=== PATIENT | female | born 1945 | race Two or more races ===

== ENCOUNTER 2018-01-20 05:43 | Day surgery (SDC) | payer MEDICARE, MEDICAID ==
--- NOTE | 2018-01-19 14:11 | Pre-Procedure Note/Attestation ---
Pre-Procedure Note/Attestation Complete Prior to Procedure Planned Procedure: right Procedure Narrative: phaco with IOL Indications for Procedure Pre-Operative Diagnosis: cataract Attestation I attest that I discussed the nature of the procedure; its benefits; risks and complications; and alternatives (and the risks and benefits of such alternatives ), prior to the procedure, with the patient (or the patient's legal used equipment sales representative). I attest that, if there was a reasonable possibility of needing a blood transfusion, the patient (or the patient's legal used equipment sales representative) was given the [facility] standardized written summary, pursuant to the [place] Blood Safety Act ([place] Health and Safety Code # 1645, as amended). I attest that I re-evaluated the patient just prior to the surgery and that there has been no change in the patient's H&P, except as documented below: OLYA GARCIA Jan 19, 2018 14:11
--- NOTE | 2018-01-19 14:13 | Opthalmology H&P ---
Ophthalmology H&P H&P Chief Complaint: decreased vision in right eye HPI Vision Affects Ability to: read, focus/use eyes together, manage personal affairs HPI Narrative blurry vision Exam Visual Acuity: OD: HM OS; 20/160 Tension: OD: 16 OS: 18 Eye Exam: normal OU: external exam, palpebral fissure-width, marginal reflex distance, levator function, corneas, anterior chambers; findings: lens - OD: psc OS: NS, fundus exam - PDR OU Assessment/Plan Diagnosis: (1) Posterior subcapsular cataract, right Treatment Plan: cataract extraction w/ lens implant Goals of Treatment: improvement of vision, enhance quality of life Attestation Attestation The risks and benefits of the surgery as well as alternative procedures were explained to the patient in detail. OLYA GARCIA Jan 19, 2018 14:13
[2018-01-20] VITALS (11 sets, daily range): BP systolic 150–184; BP diastolic 55–76
[~2018-01-20] VITALS: Ht 147.3 cm; Wt 58.1 kg
[2018-01-20] MEDS: Cyclopentolate 1% Opth Sol 2ml RIGHT EYE SCH ×3 (06:41→07:15)
[2018-01-20] MEDS: Tropicamide 1% Opth 15ml Soln RIGHT EYE SCH ×3 (06:42→07:15)
[2018-01-20] MEDS: Phenylephrine 10% Opth Soln 5ml RIGHT EYE SCH ×3 (06:42→07:15)
[2018-01-20] MEDS: Tobramycin Op Soln 0.3% 5ml RIGHT EYE SCH ×3 (06:42→07:15)
[2018-01-20] MEDS ORDERED: LOSARTAN POTASS50 MG ORAL (06:52)
[2018-01-20] MEDS ORDERED: ISOSORBIDE MONO60 M1 PO (06:52)
[2018-01-20] MEDS ORDERED: APRESOLINE50 MG ORAL (06:52)
[2018-01-20] MEDS ORDERED: NOVOLIN N100 UNIT/1 SUBQ ×2 (06:52)
[2018-01-20] MEDS ORDERED: RENVELA800 MG ORAL (06:52)
[2018-01-20] MEDS ORDERED: Tetracaine 0.5% Opth 4ml Soln RIGHT EYE ONE (07:00)
[2018-01-20] MEDS ORDERED: Dexamethasone 4mg/ml vial ONE (07:00)
[2018-01-20] MEDS ORDERED: Akten 3.5% 1ml Btl RIGHT EYE ONE (07:00)
[2018-01-20] MEDS ORDERED: Proparacaine 0.5% Opth Soln 15ml RIGHT EYE ONE (07:00)
[2018-01-20] MEDS ORDERED: Maxitrol Opth Oint 3.5gm ONE (07:00)
[2018-01-20] MEDS ORDERED: Pred Forte 1% Opth Susp 1ml ONE (07:00)
[2018-01-20] MEDS ORDERED: Diclofenac Sod 0.1% Op Soln RIGHT EYE SCH (07:00)
[2018-01-20] MEDS ORDERED: Pilocarpine 2% Opth 15ml Soln ONE (07:00)
[2018-01-20] MEDS ORDERED: Povidone-Iodine 5% opth solution ONE (07:00)
[2018-01-20] MEDS ORDERED: fentaNYL 100 mcg/2 mL IV ONE (08:30)
[2018-01-20] MEDS ORDERED: Midazolam 2mg/2ml Inj IVP PRN (08:45)
[2018-01-20] MEDS ORDERED: Labetalol 5mg/ml 20ml vial IV PRN (08:45)
[2018-01-20] MEDS ORDERED: Atropine Inj 1mg/10ml Syr IV PRN (08:45)
[2018-01-20] MEDS ORDERED: DiphenhydrAMINE 50mg/ml Inj IVP PRN (08:45)
[2018-01-20] MEDS ORDERED: fentaNYL 100 mcg/2 mL IV PRN (08:45)
--- NOTE | 2018-01-20 08:51 | Anethesia Preoperative Eval ---
Anesthesia Pre-op PMH/ROS General Date of Evaluation: Jan 20, 2018 Time of Evaluation: 08:23 Anesthesiologist: javy ASA Score: ASA 4 Mallampati Score Class I : Soft palate, uvula, fauces, pillars visible Class II: Soft palate, uvula, fauces visible Class III: Soft palate, base of uvula visible Class IV: Only hard plate visible Mallampati Classification: Class II Surgeon: alexus Diagnosis: cataract right eye Surgical Procedure: cataract extraction w/ iol righy eye Anesthesia History: none Family History: no anesthesia problems Allergies: Coded Allergies: No Known Allergies (Unverified , 01/19/18) Medications: see eMAR Past Medical History Cardiovascular: Reports: HTN Gastrointestinal/Genitourinary: Reports: ESRD Endocrine: Reports: DM Anesthesia Pre-op Phys. Exam Physician Exam Last Vital Signs Date Time Temp Pulse Resp B/P (MAP) Pulse Ox O2 Delivery O2 Flow Rate FiO2 01/20/18 07:18 97.9 74 20 180/74 (109) 97.9 01/20/18 06:37 Room Air Constitutional: NAD Neurologic: CN 2-12 intact Cardiovascular: RRR Respiratory: CTA Gastrointestinal: S/NT/ND Airway Exam Mallampati Score: Class II MO: limited Neck: short TMD: 2fb ROM: limited Anesthesia Pre-op A/P Labs Chemistry Test 01/20/18 07:10 Potassium Level 4.4 MMOL/L (3.5-5.1) Risk Assessment & Plan Assessment: asa4 Plan: mac Status Change Before Surgery: No Pre-Antibiotics Drug: Darby Briggs MD Jan 20, 2018 08:51
--- NOTE | 2018-01-20 11:15 | Brief Operative Note ---
Immediate Post Operative Note Operative Note Chief Complaint: blurry vision Pre-op Diagnosis: cataract, OD Procedure: phaco with IOL, OD Post-op Diagnosis: pseudophakia Post-op Diagnosis: same as pre-op Findings: consistent w/pre-op dx studies Surgeon: Marisol Anesthesiologist: Arun Lee Anesthesia: MAC Specimen: none Complications: none Condition: stable Fluids: LR Estimated Blood Loss: none Drains: none Implant(s) used?: Yes OLYA GARCIA Jan 20, 2018 11:15
--- NOTE | 2018-01-20 11:16 | Operative Note - PDOC ---
Operative Note Operative Note Date of Operation/Procedure: Jan 20, 2018 Chief Complaint: blurry vision Pre-op Diagnosis: cataract, OD Procedure: phaco with IOL, OD Post-op Diagnosis: pseudophakia Post-op Diagnosis: same as pre-op Operative Findings: consistent w/pre-op dx studies Surgeon: Marisol Anesthesiologist: Arun Lee Anesthesia: MAC Specimen: none Complications: none Condition: stable Fluids: LR Estimated Blood Loss: none Drains: none Implant(s) used?: Yes Indications for Procedure cataract Description of Procedure This patient has been complaining visually significant cataract in the affected eye with the best corrected visual acuity under moderate glare conditions worse. The patient complains of difficulties with glare in performing activities of daily living and wants to manage personal affairs with comfort and accuracy and see well enough to move with safety at home and outdoors. The risks, benefits and alternatives of the procedure were discussed with the patient in the office prior to scheduling surgery. All questions from the patient were answered after the surgical procedure was explained in detail. The risks of the procedure as explained to the patient include, but are not limited to, pain, infection, bleeding, loss of vision, retinal detachment, need for further surgery, loss of lens nucleus, double vision, etc. Alternative procedures were discussed which include, to do nothing or seek a second opinion. Informed consent for this procedure was obtained from the patient. The patient was referred to a primary care physician for a cardiopulmonary clearance prior to surgery, after proper evaluation was done patient was properly scheduled for outpatient surgery. The patient was brought to the operating room where the anesthesiologist established I.V. lines and cardiac monitoring leads. Mild intravenous sedation was administered. The patient was then prepared with a 5% solution of povidone -iodine to the conjunctival fornix and lashes, and a 5% solution of povidone- iodine to the lids and periorbital skin. The patient was then draped in the usual sterile fashion. A lid speculum was then placed in the operative eye. A keratome blade was then used to create a biplanar incision into the anterior chamber. Viscoelastics was then instilled into the anterior chamber. A capsulorrhexis was then fashioned with an utrata forceps and a BSS and a G 27 cannula was used to hydrodissect and hydro delineate the lens nucleus. Paracentesis incision was made at 3 o'clock with sharp blade. The phacoemulsification unit, after being properly adjusted and tested, was then used to emulsify the nucleus followed by aspiration and irrigation of residual cortical material with the I and A unit. Healon was then instilled into the anterior chamber. The corneal wound was then enlarged to the size of the optic with the monique keratome blade. The intraocular lens was then inspected for right power and size and thought to be satisfactory. Then the lens was gently placed in the capsular bag. Positioning within the capsular bag was confirmed by direct visualization. Optic centration was accomplished with a Sinskey hook. Viscoelastics was removed from the anterior chamber using the irrigation and aspiration unit. The corneal wound was then tested for leaks and none were found. The lid speculum were then removed. Sponge and needle counts were correct. An eye patch and shield were placed over the operative eye. The patient was taken to the recovery room in stable condition. There were no complications. The patient tolerated the procedure well. The patient was then transferred to the ambulatory surgery unit in stable and satisfactory condition , was given detailed written instructions and asked to follow up in the office the next day. OLYA GARCIA Jan 20, 2018 11:16
[2018-01-20] MEDS ORDERED: BSS 15ml BTL ONE (15:15)
[2018-01-20] MEDS ORDERED: Sodium Hyaluronate 14 mg/ml 0.85ml ONE (15:15)
[2018-01-20] MEDS ORDERED: EPINEPHrine 1mg/1ml Amp ONE (15:15)
[2018-01-20] MEDS ORDERED: BSS 500ml btl ONE (15:15)
--- NOTE | 2018-01-20 15:29 | Immediate Post-Op Evaluation ---
Immediate Post-Op Evalulation Immediate Post-Op Evalulation Procedure: cataract extraction w/ iol implant right eye Date of Evaluation: Jan 20, 2018 Time of Evaluation: 09:09 IV Fluids: 200ml 0.9ns Blood Products: none Estimated Blood Loss: negligible Blood Pressure Systolic: 168 Blood Pressure Diastolic: 69 Pulse Rate: 72 Respiratory Rate: 18 O2 Sat by Pulse Oximetry: 100 Temperature (Fahrenheit): 97.3 Pain Score (1-10): 0 Nausea: No Vomiting: No Complications none Patient Status: awake, reacts, patent Hydration Status: adequate Drug: Darby Briggs MD Jan 20, 2018 15:29
--- NOTE | 2018-01-20 15:30 | 48 Hour Post Anesthesia Eval ---
Post Anesthesia Evaluation Procedure: cataract extraction w/ iol implant right eye Date of Evaluation: Jan 20, 2018 Time of Evaluation: 09:11 Blood Pressure Systolic: 177 0: 58 Pulse Rate: 72 Respiratory Rate: 18 Temperature (Fahrenheit): 97.3 O2 Sat by Pulse Oximetry: 100 Airway: patent Nausea: No Vomiting: No Pain Intensity: 0 Hydration Status: adequate Cardiopulmonary Status: stable Mental Status/LOC: patient returned to baseline Post-Anesthesia Complications: none Follow-up care needed: N/A Darby Holloway MD Jan 20, 2018 15:30
== END 2018-01-20 11:45 | disposition home or self-care (01) ==
LOC: SUR 05:43
DX: H25.041 Posterior subcapsular polar age-related cataract, right eye (principal); E11.22 Type 2 diabetes mellitus with diabetic chronic kidney disease; I12.0 Hypertensive chronic kidney disease with stage 5 chronic kidney disease or end stage renal disease; N18.6 End stage renal disease; Z99.2 Dependence on renal dialysis
CPT/HCPCS: 36415; 66984; 82962; 84132; J0171; J1100; J3010; J3370; V2632; 94003; 94150

== ENCOUNTER 2018-03-21 05:12 | Day surgery (SDC) | payer MEDICARE, MEDICAID ==
--- NOTE | 2018-03-20 12:57 | Opthalmology H&P ---
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 Octavio Damon MD Mar 20, 2018 12:57
--- NOTE | 2018-03-20 12:59 | Pre-Procedure Note/Attestation ---
Pre-Procedure Note/Attestation Complete Prior to Procedure Planned Procedure: left Procedure Narrative: Cataract Extraction with IOL implant to the Left eye Attestation I attest that I discussed the nature of the procedure; its benefits; risks and complications; and alternatives (and the risks and benefits of such alternatives ), prior to the procedure, with the patient (or the patient's legal healthcare sales representative). I attest that, if there was a reasonable possibility of needing a blood transfusion, the patient (or the patient's legal healthcare sales representative) was given the [facility] standardized written summary, pursuant to the [employer] [place] Blood Safety Act ([place] Health and Safety Code # 1645, as amended). I attest that I re-evaluated the patient just prior to the surgery and that there has been no change in the patient's H&P, except as documented below: Octavio Damon MD Mar 20, 2018 12:59
[~2018-03-21] VITALS: Ht 147.3 cm; Wt 57.1 kg
[2018-03-21] VITALS (8 sets, daily range): BP systolic 137–182; BP diastolic 56–92
[~2018-03-21 05:12] MED LIST: APRESOLINE50 MG ORAL; ISOSORBIDE MONO60 M1 PO; LOSARTAN POTASS50 MG ORAL; NOVOLIN N100 UNIT/1 SUBQ; RENVELA800 MG ORAL
[2018-03-21] MEDS: Tropicamide 1% Opth 15ml Soln LEFT EYE SCH ×3 (05:37→06:00)
[2018-03-21] MEDS: Phenylephrine 10% Opth Soln 5ml LEFT EYE SCH ×3 (05:37→06:01)
[2018-03-21] MEDS: Cyclopentolate 1% Opth Sol 2ml LEFT EYE SCH ×3 (05:37→06:01)
[2018-03-21] MEDS: Diclofenac Sod 0.1% Op Soln LEFT EYE SCH ×3 (05:37→06:00)
[2018-03-21] MEDS: Tobramycin Op Soln 0.3% 5ml LEFT EYE SCH ×3 (05:37→06:01)
[2018-03-21] MEDS ORDERED: NS Irrig 1000ml ONE (07:00)
[2018-03-21] MEDS ORDERED: Propofol 200mg/20ml IV ONE (07:00)
[2018-03-21] MEDS ORDERED: Tetracaine 0.5% Opth 4ml Soln LEFT EYE ONE (07:00)
[2018-03-21] MEDS ORDERED: Proparacaine 0.5% Opth Soln 15ml LEFT EYE ONE (07:00)
[2018-03-21] MEDS ORDERED: Akten 3.5% 1ml Btl LEFT EYE ONE (07:00)
[2018-03-21] MEDS ORDERED: LR 1000ml ONE (07:00)
[2018-03-21] MEDS ORDERED: Lidocaine 4% Amp ONE (07:01)
[2018-03-21] MEDS ORDERED: EPINEPHrine 1mg/1ml Amp ONE (07:01)
[2018-03-21] MEDS ORDERED: acetaZOLAMIDE 500mg Inj ONE (07:02)
[2018-03-21] MEDS ORDERED: Pred Forte 1% Opth Susp 1ml ONE (07:02)
[2018-03-21] MEDS ORDERED: Pilocarpine 4% Opth 15ml Soln ONE (07:02)
[2018-03-21] MEDS ORDERED: Carbachol 0.01% Op Soln 1.5ml vial ONE (07:02)
[2018-03-21] MEDS ORDERED: Lidocaine 2% MPF 5ml Vial INJ ONE (07:02)
[2018-03-21] MEDS ORDERED: Maxitrol Opth Oint 3.5gm ONE (07:02)
[2018-03-21] MEDS ORDERED: Dexamethasone 4mg/ml vial ONE (07:03)
[2018-03-21] MEDS ORDERED: Bupivacaine 0.75% 30ml vial INJ ONE (07:03)
[2018-03-21] MEDS ORDERED: BSS 15ml BTL ONE (07:03)
[2018-03-21] MEDS ORDERED: Povidone-Iodine 5% opth solution ONE (07:03)
[2018-03-21] MEDS ORDERED: BSS 500ml btl ONE (07:03)
[2018-03-21] MEDS ORDERED: Alfentanil 2ml Inj ONE (07:15)
[2018-03-21] MEDS ORDERED: Sodium Hyaluronate 14 mg/ml 0.85ml ONE (07:19)
[2018-03-21] MEDS ORDERED: oxyCODONE HCL/Acetaminophen 5/325mg ORAL PRN (07:30)
[2018-03-21] MEDS ORDERED: Atropine Sulfate 0.4mg/ml inj IVP PRN (07:30)
[2018-03-21] MEDS ORDERED: Midazolam 2mg/2ml Inj IVP PRN (07:30)
[2018-03-21] MEDS ORDERED: LR 1000ml 1,000 ML IVLG SCH (07:30)
[2018-03-21] MEDS ORDERED: Metoclopramide 10mg/2ml Inj IVP PRN (07:30)
[2018-03-21] MEDS ORDERED: Meperidine 50mg/ml Inj(FOR RIGORS ONLY) IVP PRN (07:30)
[2018-03-21] MEDS ORDERED: Ketorolac 30mg Inj IV PRN ×2 (07:30)
[2018-03-21] MEDS ORDERED: DiphenhydrAMINE 50mg/ml Inj IVP PRN (07:30)
[2018-03-21] MEDS ORDERED: Hydromorphone 0.5mg/0.5ml inj IVP PRN (07:30)
[2018-03-21] MEDS ORDERED: LORazepam Inj 2mg/ml 1ml IV PRN (07:30)
[2018-03-21] MEDS ORDERED: HYDROcodone/Acetamin 7.5/325 tab ORAL PRN (07:30)
[2018-03-21] MEDS ORDERED: Norco 5mg/325mg tab ORAL PRN (07:30)
[2018-03-21] MEDS ORDERED: fentaNYL 100 mcg/2 mL IV PRN (07:30)
--- NOTE | 2018-03-21 07:34 | Anethesia Preoperative Eval ---
Anesthesia Pre-op PMH/ROS General Date of Evaluation: Mar 21, 2018 Anesthesiologist: Cherelle ASA Score: ASA 3 Mallampati Score Class I : Soft palate, uvula, fauces, pillars visible Class II: Soft palate, uvula, fauces visible Class III: Soft palate, base of uvula visible Class IV: Only hard plate visible Mallampati Classification: Class II Surgeon: Marisol Diagnosis: Cataracts Surgical Procedure: Cat Ext IOL OS Anesthesia History: none Family History: no anesthesia problems Allergies: Coded Allergies: No Known Allergies (Unverified , 01/19/18) Medications: see eMAR Patient NPO?: Yes Past Medical History Cardiovascular: Reports: HTN Pulmonary: Reports: other - Pneumonia Gastrointestinal/Genitourinary: Reports: ESRD - Dialysis Endocrine: Reports: DM HEENT: Reports: cataract (L), cataract (R) PSxH Narrative: Cat Ext IOL OD Anesthesia Pre-op Phys. Exam Physician Exam Last Vital Signs Date Time Temp Pulse Resp B/P (MAP) Pulse Ox O2 Delivery O2 Flow Rate FiO2 03/21/18 05:55 97.9 74 18 153/65 96 Room Air 97.9 Constitutional: NAD Neurologic: CN 2-12 intact Cardiovascular: RRR Respiratory: CTA Gastrointestinal: S/NT/ND Airway Exam Mallampati Score: Class II MO: limited ROM: limited Teeth: missing, intact Anesthesia Pre-op A/P Labs Chemistry Test 03/21/18 05:45 Potassium Level 4.6 MMOL/L (3.5-5.1) Risk Assessment & Plan Assessment: ASA 3 Plan: GA Status Change Before Surgery: No Leo Villarreal MD Mar 21, 2018 07:34
--- NOTE | 2018-03-21 07:35 | 48 Hour Post Anesthesia Eval ---
Post Anesthesia Evaluation Procedure: Cat Ext IOL OS Date of Evaluation: Mar 21, 2018 Time of Evaluation: 08:14 Blood Pressure Systolic: 183 0: 67 Pulse Rate: 78 Respiratory Rate: 18 Temperature (Fahrenheit): 97.6 O2 Sat by Pulse Oximetry: 97 Airway: patent Nausea: No Vomiting: No Pain Intensity: 1 Hydration Status: adequate Cardiopulmonary Status: Stable Mental Status/LOC: patient returned to baseline Follow-up Care/Observations: 0 Post-Anesthesia Complications: 0 Follow-up care needed: ready to discharge Leo Villarreal MD Mar 21, 2018 07:35
--- NOTE | 2018-03-21 07:35 | Immediate Post-Op Evaluation ---
Immediate Post-Op Evalulation Immediate Post-Op Evalulation Procedure: Cat Ext IOL OS Date of Evaluation: Mar 21, 2018 Time of Evaluation: 08:14 IV Fluids: 100 NS Blood Products: 0 Estimated Blood Loss: 1 Urinary Output: 0 Blood Pressure Systolic: 182 Blood Pressure Diastolic: 81 Pulse Rate: 72 Respiratory Rate: 16 O2 Sat by Pulse Oximetry: 99 Temperature (Fahrenheit): 97.2 Pain Score (1-10): 1 Nausea: No Vomiting: No Complications 0 Patient Status: awake, reacts, patent, none Hydration Status: adequate Leo Villarreal MD Mar 21, 2018 07:35
--- NOTE | 2018-03-22 14:20 | Brief Operative Note ---
Immediate Post Operative Note Operative Note Chief Complaint: blurry vision Pre-op Diagnosis: cataract, OS Procedure: phaco with IOL, OS Post-op Diagnosis: Pseudophakia Post-op Diagnosis: same as pre-op Findings: consistent w/pre-op dx studies Surgeon: Marisol Anesthesiologist: Qasim Anesthesia: MAC Specimen: none Complications: none Condition: stable Fluids: LR Estimated Blood Loss: none Implant(s) used?: Yes Octavio Damon MD Mar 22, 2018 14:20
--- NOTE | 2018-03-22 14:21 | Operative Note - PDOC ---
Operative Note Operative Note Date of Operation/Procedure: Mar 21, 2018 Chief Complaint: blurry vision Pre-op Diagnosis: cataract, OS Procedure: phaco with IOL, OS Post-op Diagnosis: Pseudophakia Post-op Diagnosis: same as pre-op Operative Findings: consistent w/pre-op dx studies Surgeon: Marisol Anesthesiologist: Qasim Anesthesia: MAC Specimen: none Complications: none Condition: stable Fluids: LR Estimated Blood Loss: none Implant(s) used?: Yes Indications for Procedure cataract Description of Procedure This patient has been complaining visually significant cataract in the affected eye with the best corrected visual acuity under moderate glare conditions worse. The patient complains of difficulties with glare in performing activities of daily living and wants to manage personal affairs with comfort and accuracy and see well enough to move with safety at home and outdoors. The risks, benefits and alternatives of the procedure were discussed with the patient in the office prior to scheduling surgery. All questions from the patient were answered after the surgical procedure was explained in detail. The risks of the procedure as explained to the patient include, but are not limited to, pain, infection, bleeding, loss of vision, retinal detachment, need for further surgery, loss of lens nucleus, double vision, etc. Alternative procedures were discussed which include, to do nothing or seek a second opinion. Informed consent for this procedure was obtained from the patient. The patient was referred to a primary care physician for a cardiopulmonary clearance prior to surgery, after proper evaluation was done patient was properly scheduled for outpatient surgery. The patient was brought to the operating room where the anesthesiologist established I.V. lines and cardiac monitoring leads. Mild intravenous sedation was administered. The patient was then prepared with a 5% solution of povidone -iodine to the conjunctival fornix and lashes, and a 5% solution of povidone- iodine to the lids and periorbital skin. The patient was then draped in the usual sterile fashion. A lid speculum was then placed in the operative eye. A keratome blade was then used to create a biplanar incision into the anterior chamber. Viscoelastics was then instilled into the anterior chamber. A capsulorrhexis was then fashioned with an utrata forceps. BSS and a cannula were then used to hydrodissect and hydro delineate the lens. Paracentesis incision was made at 3 o'clock with sharp blade. The phacoemulsification unit, after being properly adjusted and tested, was then used to emulsify the nucleus. Residual cortical material was aspirated with the irrigation and aspiration unit. Healon was then instilled into the anterior chamber. The corneal wound was then enlarged to the size of the optic with the monique keratome blade. The intraocular lens was then inspected for right power and size and thought to be satisfactory. Then the lens was gently placed in the capsular bag. Positioning within the capsular bag was confirmed by direct visualization. Optic centration was accomplished with a Sinskey hook. Viscoelastics was removed from the anterior chamber using the irrigation and aspiration unit. The corneal wound was then tested for leaks and none were found. The lid speculum were then removed. Sponge and needle counts were correct. An eye patch and shield were placed over the operative eye. The patient was taken to the recovery room in stable condition. There were no complications. The patient tolerated the procedure well. The patient was then transferred to the ambulatory surgery unit in stable and satisfactory condition , was given detailed written instructions and asked to follow up in the office the next day. Octavio Damon MD Mar 22, 2018 14:21
[2018-03-23] MEDS ORDERED: Phenylephrine 10% Opth Soln 5ml LEFT EYE SCH ×2 (07:00)
[2018-03-23] MEDS ORDERED: Tetracaine 0.5% Opth 4ml Soln LEFT EYE ONE (07:00)
[2018-03-23] MEDS ORDERED: Tropicamide 1% Opth 15ml Soln LEFT EYE SCH ×2 (07:00)
[2018-03-23] MEDS ORDERED: Tobramycin Op Soln 0.3% 5ml LEFT EYE SCH ×2 (07:00)
[2018-03-23] MEDS ORDERED: Akten 3.5% 1ml Btl LEFT EYE ONE (07:00)
[2018-03-23] MEDS ORDERED: Diclofenac Sod 0.1% Op Soln LEFT EYE SCH ×2 (07:00)
[2018-03-23] MEDS ORDERED: Cyclopentolate 1% Opth Sol 2ml LEFT EYE SCH ×2 (07:00)
[2018-03-23] MEDS ORDERED: Proparacaine 0.5% Opth Soln 15ml LEFT EYE ONE (07:00)
== END 2018-03-21 09:20 | disposition home or self-care (01) ==
LOC: SUR 05:12
DX: H25.9 Unspecified age-related cataract (principal); E11.3599 Type 2 diabetes mellitus with proliferative diabetic retinopathy without macular edema, unspecified eye; E11.22 Type 2 diabetes mellitus with diabetic chronic kidney disease; I13.2 Hypertensive heart and chronic kidney disease with heart failure and with stage 5 chronic kidney disease, or end stage renal disease; I50.9 Heart failure, unspecified; N18.6 End stage renal disease; Z99.2 Dependence on renal dialysis; M19.90 Unspecified osteoarthritis, unspecified site; D64.9 Anemia, unspecified
CPT/HCPCS: 36415; 66984; 82962; 84132; J0171; J1100; J2250; J2704; J3370; J3490; V2632; 94003; 94150